=== PATIENT | female | born 1970 | race Caucasian/White ===

== ENCOUNTER 2018-05-09 19:09 | Emergency (ER) | payer OTHER ==
[~2018-05-09] VITALS: Ht 154.9 cm; Wt 81.8 kg
[2018-05-09] MEDS ORDERED: DICY20 PO (19:22)
[2018-05-09] MEDS ORDERED: LISI-662 PO (19:22)
[2018-05-09] MEDS ORDERED: HYDR25TA PO (19:22)
[2018-05-09] MEDS ORDERED: TERB250 PO (19:22)
[2018-05-09] MEDS ORDERED: NAPR-58 PO (19:22)
[2018-05-09] MEDS ORDERED: OMEP20 PO (19:22)
[2018-05-09] MEDS ORDERED: DSS100 PO (19:22)
[2018-05-09 20:14] LABS: BASOPHILS % (AUTO) 0.6 % (0.0-2.0); EOSINOPHILS % (AUTO) 1.3 % (1.0-6.0); HEMATOCRIT 40.2 % (36-46); HEMOGLOBIN 13.5 g/dL (12.0-16.0); LYMPHOCYTES # (AUTO) 2.9 K/uL (1.0-4.8); LYMPHOCYTES % (AUTO) 28.5 % (22.0-44.0); MEAN CORPUSCULAR HEMOGLOBIN 28.6 pg (26.0-34.0); MEAN CORPUSCULAR HGB CONC 33.5 G/dL (31.0-37.0); MEAN CORPUSCULAR VOLUME 86 fL (80-100); MONOCYTES # (AUTO) 0.7 K/uL (0.1-1.0); MONOCYTES % (AUTO) 6.7 % (2.0-9.0); NEUTROPHILS # (AUTO) 6.4 K/uL (1.8-7.7); NEUTROPHILS % (AUTO) 62.9 % (40.0-70.0); PLATELET COUNT (AUTO) 322 K/uL (150-450); RED CELL DISTRIBUTION WIDTH 14.4 % (11.5-14.5)
[2018-05-09 20:23] LABS: ANION GAP 12 mmol/L (8-16); CALCIUM, TOTAL 8.8 mg/dL (8.8-10.5); CARBON DIOXIDE 24 mmol/L (22-29); CHLORIDE 104 mmol/L (98-107); CREATININE 0.68 mg/dL (0.60-1.30); GLOMERULAR FILTR. RATE CALC > 60 mL/min (>60); GLUCOSE,RANDOM 98 mg/dL (70-110); POTASSIUM 3.2 mmol/L (3.5-5.1); SODIUM SERUM 140 mmol/L (136-145); UREA NITROGEN, BLOOD 11 mg/dL (7-18)
[2018-05-09 20:29] LABS: ALANINE AMINOTRANSFERASE 27 U/L (12-78); ALBUMIN 3.7 g/dL (3.4-5.0); ALKALINE PHOSPHATASE 79 U/L (46-116); ASPARTATE AMINOTRANSFERASE 23 U/L (15-37); BILIRUBIN,TOTAL 0.5 mg/dL (0.1-1.0); LIPASE 106 U/L (73-393); TOTAL PROTEIN, SERUM 8.1 g/dL (6.4-8.2)
[2018-05-09 20:35] LABS: APPEARANCE,URINE CLOUDY (CLEAR); BILIRUBIN,URINE NEGATIVE (NEGATIVE); GLUCOSE, URINE (UA) NEGATIVE (NEGATIVE); KETONES,URINE 15 mg/dL (NEGATIVE); LEUKOCYTE ESTERASE ,URINE MODERATE (NEGATIVE); NITRATE,URINE NEGATIVE (NEGATIVE); OCCULT BLOOD,URINE MODERATE (NEGATIVE); PROTEIN,URINE NEGATIVE (NEGATIVE)
[2018-05-09 20:49] LABS: SQUAMOUS EPITHELIAL CELL,UR Many /LPF (None Seen)
[2018-05-09 20:50] LABS: BACTERIA,URINE Moderate /HPF (None Seen); RBC,URINE 0-2 /HPF (0-2)
[2018-05-09 20:51] LABS: MUCUS,URINE Few LPF (None Seen)
[2018-05-09] MEDS ORDERED: SODIUM CHLORIDE 0.9% 100 ML ONE (21:14)
[2018-05-09] MEDS ORDERED: IOVERSOL 320 MG/ML 100 ML VIAL ONE (21:14)
[2018-05-09] MEDS ORDERED: BARIUM SULFATE 0.1% SUSPENSION 450 ML BOTTLE PO ONE (21:15)
[2018-05-09] MEDS ORDERED: POTASSIUM CHLORIDE 10% 40 MEQ/30 ML LIQUID UDCUP PO ONE (21:15)
[2018-05-09] MEDS ORDERED: SODIUM CHLORIDE 0.9% 1,000 ML IV ONE (21:15)
[2018-05-09] MEDS ORDERED: ONDANSETRON HCL 4 MG/2 ML VIAL IVP ONE (21:15)
[2018-05-09] MEDS ORDERED: FentaNYL CITRATE-PF 100 MCG/2 ML VIAL IVP ONE (21:15)
[2018-05-10 02:30] VITALS: BP 141/96
== END 2018-05-10 03:54 | disposition home or self-care (01) ==
LOC: EMS 19:10
DX: K59.00 Constipation, unspecified (principal); I10 Essential (primary) hypertension; K21.9 Gastro-esophageal reflux disease without esophagitis
CPT/HCPCS: 36415; 74177; 80053; 81001; 83690; 84703; 85025; 87086; 96374; 96375; 99285; J2405; J3010; J7030; J7050; Q9967

== ENCOUNTER 2019-02-27 09:00 | Day surgery (SDC) | payer OTHER ==
[~2019-02-27] VITALS: Ht 154.9 cm; Wt 84.5 kg
[~2019-02-27 09:00] MED LIST: 0.9% SODIUM CHLORIDE 10 ML SYRINGE IVP PRN; AMLO-512 PO; CLOT15CR4 TP; DICY10 PO; HYDR25TA PO; ISOS20TA9 PO; LISI-662 PO; METF-960 PO; METO25XL PO; METOPROLOL TARTRATE 50 MG TABLET PO PRN; OMEP20 PO; PLEC3TAB PO; SIMV-259 PO
[2019-02-27] MEDS ORDERED: METOPROLOL TARTRATE 50 MG TABLET ONE (09:34)
[2019-02-27 09:53] LABS: ANION GAP 9 mmol/L (8-16); CALCIUM, TOTAL 8.5 mg/dL (8.8-10.5); CARBON DIOXIDE 26 mmol/L (22-29); CHLORIDE 107 mmol/L (98-107); CREATININE 0.73 mg/dL (0.60-1.30); GLOMERULAR FILTR. RATE CALC > 60 mL/min (>60); GLUCOSE,RANDOM 105 mg/dL (70-110); POTASSIUM 3.7 mmol/L (3.5-5.1); SODIUM SERUM 142 mmol/L (136-145); UREA NITROGEN, BLOOD 11 mg/dL (7-18)
[2019-02-27] MEDS ORDERED: METOPROLOL TARTRATE 5 MG/5 ML VIAL IVP ONE ×3 (10:00→10:30)
[2019-02-27] MEDS ORDERED: METOPROLOL TARTRATE 5 MG/5 ML VIAL ONE ×4 (10:03→10:45)
[2019-02-27 10:05] LABS: HCG,QUANTITATIVE < 1 mIU/mL (0-6)
== END 2019-02-27 11:05 | disposition home or self-care (01) ==
LOC: SURGERY 09:00 → EDSTATUS 10:30 → SURGERY 11:05
PROVIDERS: ATTEND Internal Medicine Cardiovascular Disease
DX: R07.89 Other chest pain (principal); Z53.8 Procedure and treatment not carried out for other reasons; E78.00 Pure hypercholesterolemia, unspecified
CPT/HCPCS: 36415; 80048; 84702; 93005; J3490

== ENCOUNTER 2019-03-29 08:18 | Day surgery (SDC) | payer OTHER ==
[~2019-03-29] VITALS: Ht 154.9 cm; Wt 84.5 kg
[~2019-03-29 08:18] MED LIST changes: -0.9% SODIUM CHLORIDE 10 ML SYRINGE IVP PRN; -METOPROLOL TARTRATE 50 MG TABLET PO PRN
[2019-03-29] MEDS ORDERED: 0.9% SODIUM CHLORIDE 10 ML SYRINGE IVP PRN (08:30)
[2019-03-29] MEDS ORDERED: METOPROLOL TARTRATE 50 MG TABLET ONE (08:39)
[2019-03-29] MEDS: METOPROLOL TARTRATE 50 MG TABLET PO PRN (08:52)
[2019-03-29 08:57] LABS: ANION GAP 12 mmol/L (8-16); CARBON DIOXIDE 24 mmol/L (22-29); CHLORIDE 103 mmol/L (98-107); CREATININE 0.82 mg/dL (0.60-1.30); GLOMERULAR FILTR. RATE CALC > 60 mL/min (>60); GLUCOSE,RANDOM 121 mg/dL (70-110); POTASSIUM 3.3 mmol/L (3.5-5.1); SODIUM SERUM 139 mmol/L (136-145); UREA NITROGEN, BLOOD 16 mg/dL (7-18)
== END 2019-03-29 09:40 | disposition home or self-care (01) ==
LOC: SURGERY 08:18 → EDSTATUS 10:30
PROVIDERS: ATTEND Internal Medicine Cardiovascular Disease
DX: R07.9 Chest pain, unspecified (principal); Z53.8 Procedure and treatment not carried out for other reasons; E78.00 Pure hypercholesterolemia, unspecified
CPT/HCPCS: 93005

== ENCOUNTER 2019-07-10 08:06 | Day surgery (SDC) | payer OTHER ==
[~2019-07-10] VITALS: Ht 154.9 cm; Wt 84.5 kg
[~2019-07-10 08:06] MED LIST changes: -AMLO-512 PO; +AMLO10TA7 PO; +CHL25 PO; +CYCL10 PO; +FLUT16H NASAL; -HYDR25TA PO; +IBUP-2071 PO; +ISOS10TA16 PO; -ISOS20TA9 PO; +LORA10TA7 PO; +METO-558 PO; -METO25XL PO
[2019-07-10] MEDS ORDERED: METOPROLOL TARTRATE 50 MG TABLET ONE (08:31)
[2019-07-10] MEDS ORDERED: METOPROLOL TARTRATE 5 MG/5 ML VIAL ONE ×5 (08:54→12:12)
[2019-07-10] MEDS ORDERED: 0.9% SODIUM CHLORIDE 10 ML SYRINGE IVP PRN (09:00)
[2019-07-10] MEDS ORDERED: METOPROLOL TARTRATE 50 MG TABLET PO PRN (09:00)
[2019-07-10] MEDS ORDERED: METOPROLOL TARTRATE 5 MG/5 ML VIAL IVP ONE ×4 (09:00→10:55)
[2019-07-10 09:18] LABS: ANION GAP 11 mmol/L (8-16); CALCIUM, TOTAL 8.6 mg/dL (8.8-10.5); CARBON DIOXIDE 22 mmol/L (22-29); CHLORIDE 108 mmol/L (98-107); CREATININE 0.64 mg/dL (0.60-1.30); GLOMERULAR FILTR. RATE CALC > 60 mL/min (>60); GLUCOSE,RANDOM 117 mg/dL (70-110); HCG,QUANTITATIVE < 1 mIU/mL (0-6); SODIUM SERUM 141 mmol/L (136-145); UREA NITROGEN, BLOOD 9 mg/dL (7-18)
[2019-07-10] MEDS ORDERED: SODIUM CHLORIDE 0.9% 250 ML IV ONE ×2 (09:47→10:00)
[2019-07-10] MEDS ORDERED: NITROGLYCERIN 400 MCG/SUBLINGUAL SPRAY 4.9 GM BOTTLE SL ONE (10:32)
== END 2019-07-10 13:15 | disposition home or self-care (01) ==
LOC: SURGERY 08:06 → EDSTATUS 10:30 → SURGERY 13:15
PROVIDERS: ATTEND Internal Medicine Cardiovascular Disease
DX: R06.02 Shortness of breath (principal); Z53.8 Procedure and treatment not carried out for other reasons; R07.9 Chest pain, unspecified; I25.10 Atherosclerotic heart disease of native coronary artery without angina pectoris; Z88.8 Allergy status to other drugs, medicaments and biological substances; E11.9 Type 2 diabetes mellitus without complications; E78.00 Pure hypercholesterolemia, unspecified; Z79.899 Other long term (current) drug therapy; Z79.84 Long term (current) use of oral hypoglycemic drugs; R97.8 Other abnormal tumor markers
CPT/HCPCS: 36415; 80048; 84702; 93005; J3490; J7050

== ENCOUNTER 2025-05-07 16:28 | Emergency (ER) | payer OTHER ==
[~2025-05-07] VITALS: Ht 154.9 cm; Wt 88.0 kg
[~2025-05-07 16:28] MED LIST changes: +AMLO-258 PO; -AMLO10TA7 PO; +CYCL-448 PO; -CYCL10 PO; +DICY-1 PO; -DICY10 PO; -FLUT16H NASAL; +FLUT16SP NASAL; +IBUP-1493 PO; -IBUP-2071 PO; -LISI-662 PO; +LISI-894 PO; +METF-1211 PO; -METF-960 PO; +METO-325 PO; -METO-558 PO; +OMEP-148 PO; -OMEP20 PO; -PLEC3TAB PO; +PLEC3TAB2 PO
[2025-05-07 16:48] VITALS: TEMP 98.4
[2025-05-07 17:16] LABS: PLATELET COUNT (AUTO) 301 K/uL (150-450); RED BLOOD CELL COUNT(AUTO) 5.12 MIL/uL (4.00-5.20); RED CELL DISTRIBUTION WIDTH 16.7 % (11.5-14.5); WHITE BLOOD COUNT (AUTO) 13.0 K/uL (4.5-11.0)
[2025-05-07 17:20] LABS: APPEARANCE,URINE HAZY (CLEAR); GLUCOSE, URINE (UA) >=1000 mg/dL (NEGATIVE); LEUKOCYTE ESTERASE ,URINE SMALL (NEGATIVE); NITRATE,URINE NEGATIVE (NEGATIVE); OCCULT BLOOD,URINE NEGATIVE (NEGATIVE); SPECIFIC GRAVITIY, URINE 1.045 (1.003-1.030)
[2025-05-07 17:22] LABS: CALCIUM, TOTAL 8.1 mg/dL (8.8-10.5); CREATININE 0.91 mg/dL (0.60-1.30); GLOMERULAR FILTR. RATE CALC > 60 mL/min (>60); GLUCOSE,RANDOM 129 mg/dL (70-110); SODIUM SERUM 140 mmol/L (136-145); UREA NITROGEN, BLOOD 12 mg/dL (7-18)
[2025-05-07 17:28] LABS: SQUAMOUS EPITHELIAL CELL,UR Few /LPF (None Seen)
[2025-05-07] MEDS: MORPHINE SULFATE 4 MG/ML SYRINGE IVP ONE (21:38)
[2025-05-07] MEDS: ONDANSETRON HCL 4 MG/2 ML VIAL IVP ONE (21:38)
[2025-05-07] MEDS: SODIUM CHLORIDE 0.9% 1,000 ML IV ONE (21:38)
[2025-05-07 22:00] LABS: TROPONIN I-HIGH SENSITIVITY Less Than 4 ng/L (<51)
[2025-05-07 22:08] LABS: ASPARTATE AMINOTRANSFERASE 27.0 U/L (15-37); TOTAL PROTEIN, SERUM 8.4 g/dL (6.4-8.2)
[2025-05-08 00:10] VITALS: BP 137/87; PULSE 90; RESP 18; O2SAT 99
[2025-05-08] MEDS ORDERED: CEPH-558 PO (00:18)
[2025-05-08] MEDS: CEPHALEXIN MONOHYDRATE 500 MG CAPSULE PO ONE (00:30)
== END 2025-05-08 00:40 | disposition home or self-care (01) ==
LOC: EMS 16:28
DX: N39.0 Urinary tract infection, site not specified (principal); R10.84 Generalized abdominal pain; K21.9 Gastro-esophageal reflux disease without esophagitis; I10 Essential (primary) hypertension; E11.9 Type 2 diabetes mellitus without complications; Z79.84 Long term (current) use of oral hypoglycemic drugs; Z88.8 Allergy status to other drugs, medicaments and biological substances; Z87.19 Personal history of other diseases of the digestive system; Z90.49 Acquired absence of other specified parts of digestive tract; Z79.899 Other long term (current) drug therapy
CPT/HCPCS: 99285; 74176; 96374; 96361; 96375; 80048; 80076; 81001; 83690; 84484; 85025; 87086; 36415; J2270; J2405; J7030